=== PATIENT | female | born 1965 | race Caucasian/White ===

== ENCOUNTER → 2016-12-10 | Outpatient (CLI) | payer OTHER ==
[~2016-12-10] MED LIST: BUPIVACAINE MPF 0.25% 10 ML VIAL. ONE; LIDOCAINE 1% PF 30 ML VIAL. ONE
== END | disposition home or self-care (01) ==
LOC: SURG 12:07
PROVIDERS: ATTEND Anesthesiology Pain Medicine
DX: M47.812 Spondylosis without myelopathy or radiculopathy, cervical region (principal); J45.909 Unspecified asthma, uncomplicated; M19.90 Unspecified osteoarthritis, unspecified site; Z90.710 Acquired absence of both cervix and uterus; Z98.890 Other specified postprocedural states
CPT/HCPCS: 64490; 64491; J2001; J3490

== ENCOUNTER → 2017-01-28 | Outpatient (CLI) | payer OTHER | END | disposition home or self-care (01) | LOC: SURG 13:51 | PROVIDERS: ATTEND Anesthesiology Pain Medicine | DX: M47.812 Spondylosis without myelopathy or radiculopathy, cervical region (principal); J45.909 Unspecified asthma, uncomplicated; M19.91 Primary osteoarthritis, unspecified site; Z90.710 Acquired absence of both cervix and uterus | CPT/HCPCS: 64490; 64491; J2001; J3490 ==

== ENCOUNTER 2017-03-21 11:56 | Emergency (ER) | payer OTHER ==
[~2017-03-21] VITALS: Ht 154.9 cm; Wt 68.0 kg
[2017-03-21] MEDS ORDERED: HYDROcodone/APAP 5/325MG 1 TAB TABLET PO ONE (13:00)
--- NOTE | 2017-03-21 13:11 | PHYS DOC ---
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 Patient denies any other injuries, has no other complaints Review of Systems Review of Systems Constitutional: Denies fever or chills [] Eyes: Denies injury HENT: Denies injury Cardiovascular: No chest injury GI: Denies abdominal injury Musculoskeletal: Denies back pain or joint pain [] Integument: Just the laceration left index finger Neurologic: Denies headache, focal weakness or sensory changes [] All other systems were reviewed and found to be within normal limits, except as documented in this note. Current Medications Current Medications Current Medications Medications (Trade) Dose Ordered Sig/[place] Start Time Stop Time Status Last Admin Dose Admin Acetaminophen/ Hydrocodone Bitart (Lortab 5/325) 1 tab 1X ONCE 03/21/17 13:00 03/21/17 13:01 DC 03/21/17 12:51 1 TAB Lidocaine/ Epinephrine (Let Topical) 3 ml 1X ONCE 03/21/17 13:15 03/21/17 13:16 Allergies Allergies Allergies Coded Allergies Type Severity Reaction Last Updated Verified Penicillins Allergy Intermediate 03/21/17 Yes Physical Exam Physical Exam Constitutional: Well developed, well nourished, no acute distress, non-toxic appearance. [] HENT: Normocephalic, atraumatic, Eyes: EOMI, conjunctiva normal, no signs of injury Neck: Taken midline, no signs of injury Cardiovascular: Normal distal perfusion, no edema Lungs & Thorax: No tachypnea Abdomen: No distention Skin: Warm, dry, no erythema, no rash. [] Back: Normal range of motion Extremities: No tenderness, no cyanosis, no clubbing, ROM intact, no edema. 1.5 cm laceration dorsal aspect of the index finger left hand with no active bleeding no signs of no injury. Also a less than 0.5 cm superficial laceration at dorsal aspect of same finger (non suturable). No deformity. NVI intact. FROM. NO signs of open fracture. Neurologic: Alert and oriented X 3, normal motor function, no focal deficits noted. [] Psychologic: Affect normal, judgement normal, mood normal. [] Current Patient Data Vital Signs Vital Signs Date Time Temp Pulse Resp B/P (MAP) Pulse Ox O2 Delivery O2 Flow Rate FiO2 03/21/17 12:51 20 98 Room Air 03/21/17 12:00 98.1 69 EKG EKG [] Radiology/Procedures Radiology/Procedures [] Course & Med Decision Making Course & Med Decision Making Indication: laceration index finger Procedure: The patient was placed in the appropriate position and anesthesia around the laceration was provided in the form of LET. The area had been previously clean and copiously rinsed. The laceration was closed with 2 interrupted stitches 5-0 nylon. A second superficial laceration will be allowed to heal by itself. The wound area was then dressed with bandaid. Total repaired wound length: 1 cm. Other Items: [OTHER ITEMS] The patient tolerated the procedure well Complications: none.Pertinent Labs and Imaging studies reviewed. (See chart for details) Total time 5 minutes. [] Dragon Disclaimer Dragon Disclaimer This electronic medical record was generated, in whole or in part, using a voice recognition dictation system. Departure Departure: Impression: Primary Impression: Laceration Disposition: HOME, SELF-CARE Condition: STABLE Referrals: OZZY LANTIGUA (PCP) please follow up with your doctor for recheck and re-evaluation. If signs of infection develop see your doctor immediately or return to the ED. Your stitches may be removed in 7-10 days. Patient Instructions: Laceration Care, Adult Scripts Acetaminophen With Codeine (TYLENOL WITH CODEINE #3 TABLET) 1 Each Tablet 1 TAB PO Q4-6HRS for 2 Days, #7 TAB Prov: Saritha TOLLIVER MD 03/21/17 Saritha TOLLIVER MD Mar 21, 2017 13:11
[2017-03-21] MEDS ORDERED: LIDOCAINE/EPI/TETRACAINE TOPICAL GEL 3 ML. TP ONE (13:15)
[2017-03-21] MEDS ORDERED: ACET-704 PO (13:38)
[2017-03-21 14:03] VITALS: BP 134/81
== END 2017-03-21 14:05 | disposition home or self-care (01) ==
LOC: ER 11:56
DX: S61.211A Laceration without foreign body of left index finger without damage to nail, initial encounter (principal); I10 Essential (primary) hypertension; K58.9 Irritable bowel syndrome, unspecified; Z88.0 Allergy status to penicillin; W29.0XXA Contact with powered kitchen appliance, initial encounter; Y93.89 Activity, other specified; Y99.8 Other external cause status; Y92.89 Other specified places as the place of occurrence of the external cause
CPT/HCPCS: 12001; 99283-25